=== PATIENT | male | born 1960 | race Caucasian/White ===

== ENCOUNTER 2018-01-09 21:00 | Emergency (ER) | payer BC, OTHER ==
[2018-01-09 21:12] VITALS: BP 120/73; PULSE 87; TEMP 98.3; BMI 28.2
[2018-01-09] MEDS ORDERED: DIPHTH,PERTUSS(ACELL),TET 0.5 ML DISP.SYRIN IM ONE (21:41)
--- NOTE | 2018-01-09 21:41 | PDOC ---
History of Present Illness - General Chief Complaint: Laceration Stated Complaint: CUT FINGER Time Seen by Provider: 01/09/18 21:16 - History of Present Illness Initial Comments: 01/09/18 21:21 57 years old no significant past medical history presents to the ED status post laceration to his left index finger while cutting cheese at approximately noon washed out the finger applied bacitracin and wrapped it up but later this evening noticed it was still oozing No significant pain symptoms are mild persistent concent no exacerbating or alleviating factors. Past History - Past Medical History Allergies/Adverse Reactions: Allergies Allergy/AdvReac Type Severity Reaction Status Date / Time No Known Allergies Allergy Verified 01/09/18 21:16 Home Medications: Ambulatory Orders Cetirizine HCl [Zyrtec -] 10 mg PO DAILY PRN 01/09/18 Omeprazole 20 mg PO PRN PRN 01/09/18 COPD: No - Suicide/Smoking/Psychosocial Hx Smoking History: Never smoked Hx Alcohol Use: Yes (SOCIAL) Drug/Substance Use Hx: No Substance Use Type: None Review of Systems - Review of Systems Comments:: 01/09/18 21:42 ROS: A complete review of 10 out of 10 review of systems is taken and is negative apart from what is previously mentioned below and in the HPI. *Physical Exam - Vital Signs Last Vital Signs Temp Pulse Resp BP Pulse Ox 98.3 F 87 16 120/73 95 01/09/18 21:06 01/09/18 21:06 01/09/18 21:06 01/09/18 21:06 01/09/18 21:06 - Physical Exam Comments: 01/09/18 21:42 Vitals: Triage Vital signs reviewed General Appearance: no acute distress, well nourished well developed, Head: Atraumatic, Extremities: Full range of motion to all extremities, no cyanosis, clubbing, or edema Skin: Warm and dry, 2 cm laceration to the fat pad of left index finger linear Psych: normal mood, normal affect Procedures - Laceration/Wound Repair Left Finger 2nd digit Wound Length: to 2.5 cm Wound Explored: clean Wound's Depth, Shape: superficial Irrigated w/ Saline: Yes Betadine Prep: Yes Anesthesia: 2% Lidocaine Wound Repaired With: Sutures Suture Size/Type: 5:0 Number of Sutures: 7 Medical Decision Making - Medical Decision Making 01/09/18 21:45 Tetanus updated. 7 sutures placed with good approximation covered with Neosporin and dressing. Very strict return instructions discussed with patient. He will return in 7-10 days for suture removal. Findings, the need for follow-up and strict return instructions discussed with patient. *DC/Admit/Observation/Transfer Diagnosis at time of Disposition: Laceration - Discharge Dispostion Disposition: HOME Condition at time of disposition: Good Decision to Admit order: No - Referrals Referrals: Cameron Abdi MD [Primary Care Provider] - - Patient Instructions Printed Discharge Instructions: DI for Laceration Repair Additional Instructions: Leave covered for the next 24-36 hours. Then undress apply Neosporin or bacitracin twice a day then recover. Keep as clean and dry as possible okay to very gently rinse but did not disrupt stitches. Return to the emergency department immediately for any redness swelling pus fever signs of infection otherwise return in 7-10 days to have the sutures removed. - Post Discharge Activity
== END 2018-01-09 21:52 | disposition home or self-care (01) ==
LOC: FER 21:00
PROC: 3E0234Z Introduction of Serum, Toxoid and Vaccine into Muscle, Percutaneous Approach (ICD-10-PCS; principal; 2018-01-09)
PROC: 0HQGXZZ Repair Left Hand Skin, External Approach (ICD-10-PCS; 2018-01-09)
DX: S61.211A Laceration without foreign body of left index finger without damage to nail, initial encounter (principal); W26.0XXA Contact with knife, initial encounter; Y93.G1 Activity, food preparation and clean up; Y92.89 Other specified places as the place of occurrence of the external cause
CPT/HCPCS: 90715; 99282-25

== ENCOUNTER 2018-01-18 07:03 | Emergency (ER) | payer OTHER ==
[2018-01-18 07:10] VITALS: BP 141/84; PULSE 80; TEMP 97.8; BMI 61.7
--- NOTE | 2018-01-18 07:19 | PDOC ---
Suture Removal/Wound Check HPI - History of Present Illness Chief Complaint: Suture/Staple Removal(Here) Stated Complaint: SUTURE REMOVAL Time Seen by Provider: 01/18/18 07:18 History Source: Yes: Patient Exam Limitations: Yes: No Limitations Treated at: [facility] Date of Last ED visit: 01/09/18 - Previous ED Treatment Type of procedure performed on last visit: Yes: Laceration Repair Antibiotics Prescribed: No - Onset of Previous Treatment Date of Occurence: 01/09/18 Comment:: 01/18/18 07:21 Mr Shields presents to the ER for suture removal Sutures placed on 01/09 Pt states the wound demonstrates no erythema or drainage He was placed on no abx No significant pain Past History - Past Medical History Allergies/Adverse Reactions: Allergies Allergy/AdvReac Type Severity Reaction Status Date / Time No Known Allergies Allergy Verified 01/18/18 07:04 Home Medications: Ambulatory Orders NK [No Known Home Medication] 01/18/18 COPD: No - Suicide/Smoking/Psychosocial Hx Smoking History: Former smoker Have you smoked in the past 12 months: No If you are a former smoker, when did you quit?: 30 Information on smoking cessation initiated: No Hx Alcohol Use: No Drug/Substance Use Hx: No Substance Use Type: None *Review of Systems - Review of Systems Able to Perform ROS?: Yes Constitutional: No: Chills, Fever Integumentary: No: Bruising, Change in Color, Erythema Neurological: No: Numbness, Paresthesia *Physical Exam - Vital Signs Last Vital Signs Temp Pulse Resp BP Pulse Ox 97.8 F 80 16 141/84 98 01/18/18 07:05 01/18/18 07:05 01/18/18 07:05 01/18/18 07:05 01/18/18 07:05 - Physical Exam General Appearance: Yes: Nourished, Appropriately Dressed, Apparent Distress Musculoskeletal: positive: Normal Inspection Extremity: positive: Normal Capillary Refill, Normal Inspection, Normal Range of Motion. negative: Coldness, Cyanosis, Erythema, Inflammation Integumentary: positive: Normal Color, Dry, Warm. 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 negative: Sensory Deficit Medical Decision Making - Medical Decision Making 01/18/18 07:24 Sutures removed Skin in tact Will discharge to home Follow up with PMD if needed *DC/Admit/Observation/Transfer Diagnosis at time of Disposition: Visit for suture removal - Discharge Dispostion Disposition: HOME Condition at time of disposition: Stable Decision to Admit order: No - Referrals Referrals: Cameron Abdi MD [Primary Care Provider] - - Patient Instructions Printed Discharge Instructions: DI for Suture Removal - Post Discharge Activity
== END 2018-01-18 07:33 | disposition home or self-care (01) ==
LOC: FER 07:03
DX: Z48.02 Encounter for removal of sutures (principal)
CPT/HCPCS: 99281-25

== ENCOUNTER 2020-10-03 05:12 | Day surgery (SDC) | payer OTHER ==
[2020-10-01 15:10] VITALS: BMI 30.4
[2020-10-03 10:16] VITALS: TEMP 97.6
[2020-10-03 12:42] VITALS: BP 117/63; PULSE 67
== END 2020-10-03 11:40 | disposition home or self-care (01) ==
LOC: JASU-ENDO 05:12
PROVIDERS: ATTEND Internal Medicine Gastroenterology
PROC: 0DBH8ZX Excision of Cecum, Via Natural or Artificial Opening Endoscopic, Diagnostic (ICD-10-PCS; principal; 2020-10-03 09:00)
DX: Z12.11 Encounter for screening for malignant neoplasm of colon (principal); K63.5 Polyp of colon; Z86.010 Personal history of colon polyps
CPT/HCPCS: 88305-TC

== ENCOUNTER 2020-10-15 05:22 | Day surgery (SDC) | payer OTHER ==
[2020-10-11 17:40] VITALS: BMI 30.4
[2020-10-15 08:38] VITALS: TEMP 97.9
[2020-10-15 09:18] VITALS: BP 117/67; PULSE 69
== END 2020-10-15 09:30 | disposition home or self-care (01) ==
LOC: JASU-ENDO 05:22
PROVIDERS: ATTEND Internal Medicine Gastroenterology
PROC: 0DB68ZX Excision of Stomach, Via Natural or Artificial Opening Endoscopic, Diagnostic (ICD-10-PCS; 2020-10-15)
PROC: 0DB38ZX Excision of Lower Esophagus, Via Natural or Artificial Opening Endoscopic, Diagnostic (ICD-10-PCS; principal; 2020-10-15 08:22)
DX: K21.00 Gastro-esophageal reflux disease with esophagitis, without bleeding (principal); K31.7 Polyp of stomach and duodenum; K29.00 Acute gastritis without bleeding
CPT/HCPCS: 88305-TC; 88342-TC